=== PATIENT | male | born 1985 | race Caucasian/White ===

== ENCOUNTER 2019-02-09 09:50 | Emergency (ER) | payer BC ==
--- NOTE | 2019-02-09 10:11 | UC ---
Lower Extremity/Ankle HPI - HPI Summary HPI Summary: patient woke up this morning with sore left foot and pain around the lateral side of ankle. denies any injury. has been physical over the past few days. states yesterday has shooting paind from the bottom of the foot up around the lateral ankle - History of Current Complaint Stated Complaint: LEFT ANKLE/FOOT COMPLAINT Time Seen by Provider: 02/09/19 10:05 Hx Obtained From: Patient Onset/Duration: Sudden Onset, Lasting Days Severity Initially: Mild Severity Currently: Moderate Aggravating Factor(s): Standing, Ambulation Alleviating Factor(s): Nothing Able to Bear Weight: Yes - Allergies/Home Medications Allergies/Adverse Reactions: Allergies Allergy/AdvReac Type Severity Reaction Status Date / Time Penicillins Allergy Unknown Verified 02/09/19 10:03 Reaction Details Home Medications: Home Medications Ibuprofen TAB* [Motrin TAB* 800 MG] 800 mg PO Q4H 02/09/19 [History Confirmed ] PMH/Surg Hx/FS Hx/Imm Hx Previously Healthy: Yes - Surgical History Surgical History: None - Family History Known Family History: Positive: Hypertension - Social History Alcohol Use: Occasionally Substance Use Type: None Smoking Status (MU): Smoker, Current Status Unknown Amount Used/How Often: Occasionaly Have You Smoked in the Last Year: Yes Review of Systems All Other Systems Reviewed And Are Negative: Yes Musculoskeletal: Positive: Arthralgia, Decreased ROM, Myalgia Is Patient Immunocompromised?: No Physical Exam Triage Information Reviewed: Yes Appearance: Well-Appearing, Pain Distress, Obese Vital Signs Reviewed: Yes Eye Exam: Normal ENT Exam: Normal Dental Exam: Normal Neck exam: Normal Respiratory Exam: Normal Cardiovascular Exam: Normal Abdominal Exam: Normal Bowel Sounds: Positive: Present Musculoskeletal: Positive: Strength Intact, No Edema, ROM Limited @ - in ankle and toes due to pain wih inv and Resitive evr, dorsi flexion, Neurological Exam: Normal Psychological Exam: Normal Skin Exam: Normal Lower Extremity Course/Dx - Course Course Of Treatment: hx obtained, exam performed ,meds reviewed, xray obtained. - Differential Dx/Diagnosis Differential Diagnosis/HQI/PQRI: Contusion, Dislocation, Fracture (Closed), Sprain, Strain Provider Diagnosis: Peroneal tendonitis of left lower leg Discharge ED - Sign-Out/Discharge Documenting (check all that apply): Patient Departure All imaging exams completed and their final reports reviewed: Yes - Discharge Plan Condition: Stable Disposition: HOME Patient Education Materials: Tendinitis (ED) Forms: *Gen. Provider Communication, *Work Release Referrals: No Primary Care Phys,NOPCP [Primary Care Provider] - Additional Instructions: 1. rest, 2. anti inflammatory meds, ibuprofen or aleve as needed. 3. warm water soaks, 4. wear supportive foot wear - Billing Disposition and Condition Condition: STABLE Disposition: Home - Attestation Statements Provider Attestation: I was available for consult. This patient was seen by the [facility]. The patient was not presented to , seen by or examined by me Diane Jaquez MD
[2019-02-09 10:18] VITALS: BP 165/88
== END 2019-02-09 10:45 | disposition home or self-care (01) ==
LOC: UCCORT 09:50
DX: M76.72 Peroneal tendinitis, left leg (principal); F17.200 Nicotine dependence, unspecified, uncomplicated; Z88.0 Allergy status to penicillin
CPT/HCPCS: 99201; G0463

== ENCOUNTER 2019-02-10 22:35 | Emergency (ER) | payer BC ==
--- NOTE | 2019-02-11 00:26 | ED ---
Lower Extremity - HPI Summary HPI Summary: Pt is a 34 y/o M presenting to the ED with a chief complaint of LLE pain suddenly onset a couple of days ago. He states he went to where they dxed him with tendonitis. He reports pain in the top of his L foot and in his L ankle that has worsened tonight and is worse with weight bearing. He is on his feet most of the day at work. He denies fever, chills, nausea, and vomiting. He has been taking approximately 800mg IBU q4-6hrs LITHOP[employer] w/o significant relief. - History of Current Complaint Chief Complaint: EDExtremityLower Stated Complaint: LT FOOT PAIN PER PT Time Seen by Provider: 02/10/19 23:58 Hx Obtained From: Patient Mechanism Of Injury: Unknown Onset of Pain: Days Onset/Duration: Days Severity Initially: Moderate Severity Currently: Severe Pain Intensity: 10 Pain Scale Used: 0-10 Numeric Timing: Constant, Lasting Days Location: Is Discrete @ - LLE Aggravating Factor(s): Weight Bearing Alleviating Factor(s): Nothing Able to Bear Weight: Yes - with pain - Allergies/Home Medications Allergies/Adverse Reactions: Allergies Allergy/AdvReac Type Severity Reaction Status Date / Time Penicillins Allergy Unknown Verified 02/10/19 22:40 Reaction Details PMH/Surg Hx/FS Hx/Imm Hx Previously Healthy: Yes Endocrine/Hematology History: Denies: Hx Diabetes Cardiovascular History: Reports: Hx Hypertension - no meds Infectious Disease History: No Infectious Disease History: Denies: Hx Clostridium Difficile, Hx Hepatitis, Hx Human Immunodeficiency Virus (HIV), Hx Shingles, Hx Tuberculosis, Traveled Outside the [place] in Last 30 Days - Family History Known Family History: Positive: Hypertension - Social History Alcohol Use: Occasionally Hx Substance Use: No Substance Use Type: Reports: None Hx Tobacco Use: Yes Smoking Status (MU): Smoker, Current Status Unknown Amount Used/How Often: Occasionaly Have You Smoked in the Last Year: Yes Review of Systems Negative: Fever, Chills Negative: Vomiting, Nausea Positive: Myalgia All Other Systems Reviewed And Are Negative: Yes Physical Exam - Summary Physical Exam Summary: Constitutional: Well-developed, Well-nourished, Alert. (-) Distressed Skin: Warm, Dry HENT: Normocephalic; Atraumatic Eyes: Conjunctiva normal Neck: Musculoskeletal ROM normal neck. (-) JVD, (-) Stridor, (-) Tracheal deviation Cardio: Rhythm regular, rate normal, Heart sounds normal; Intact distal pulses; Radial pulses are 2+ and symmetric. (-) Murmur Pulmonary/Chest wall: Effort normal. (-) Respiratory distress, (-) Wheezes, (-) Rales Abd: Soft, (-) tenderness, (-) Distension, (-) Guarding, (-) Rebound Musculoskeletal: Tenderness in the L plantar fascia. No ankle tenderness, no edema, full ROM in all joints. DP/PT pulse 2+. Lymph: (-) Cervical adenopathy Neuro: Alert, Oriented x3 Psych: Mood and affect Normal Triage Information Reviewed: Yes Vital Signs On Initial Exam: Initial Vitals Temp Pulse Resp BP Pulse Ox 98.6 F 91 16 165/105 97 02/10/19 22:37 02/10/19 22:37 02/10/19 22:37 02/10/19 22:37 02/10/19 22:37 Vital Signs Reviewed: Yes Procedures - Sedation Patient Received Moderate/Deep Sedation with Procedure: No Diagnostics - Vital Signs Vital Signs Temp Pulse Resp BP Pulse Ox 02/10/19 22:37 98.6 F 91 16 165/105 97 - Laboratory Lab Statement: Any lab studies that have been ordered have been reviewed, and results considered in the medical decision making process. Lower Extremity Course/Dx - Course Course Of Treatment: Patient is here with pain in his plantar fascia. Patient' s symptoms are consistent with plantar fasciitis. Patient evidence of septic arthritis and had no trauma resuscitating x-ray. Patient was given podiatry follow-up. Patient had an Sven wrap placed and was given crutches. - Diagnoses Provider Diagnoses: Plantar fasciitis of left foot Discharge ED - Sign-Out/Discharge Documenting (check all that apply): Patient Departure - Discharge Plan Condition: Stable Disposition: HOME Prescriptions: Dexamethasone TAB* [Decadron TAB*] 12 mg PO ONCE #3 tab Patient Education Materials: Plantar Fasciitis (ED) Referrals: Katelin Song MD [Medical Doctor] - Daniel Thomas DPM [Doctor of Podiatric Medicine] - Additional Instructions: Please take no more than 800mg Ibuprofen every 8 hours. Take your prescribed medications as instructed. Follow up with Dr. Song of orthopedics or Dr. Saxena of podiatry. Come back to the emergency department with any sudden numbness, one-sided weakness, or tingling. - Billing Disposition and Condition Condition: STABLE Disposition: Home - Attestation Statements Document Initiated by Eze: Yes Documenting Scribe: Payal Phan Provider For Whom Eze is Documenting (Include Credential): Frantz Javed MD. Scribe Attestation: Payal Medina, scribed for Frantz Javed MD. on 02/11/19 at 0356. Scribe Documentation Reviewed: Yes Provider Attestation: The documentation as recorded by the maaiibe, Payal Phan accurately reflects the service I personally performed and the decisions made by , Frantz Javed MD. Status of Scribe Document: Viewed
[2019-02-11 01:17] VITALS: BP 139/81
== END 2019-02-11 01:16 | disposition home or self-care (01) ==
LOC: ED 22:35
DX: M72.2 Plantar fascial fibromatosis (principal); I10 Essential (primary) hypertension; F17.200 Nicotine dependence, unspecified, uncomplicated; Z88.0 Allergy status to penicillin
CPT/HCPCS: 99282

== ENCOUNTER 2019-06-19 07:58 | Emergency (ER) | payer BC ==
[2019-06-19 08:22] VITALS: BP 148/89
[2019-06-19 08:45] LABS: Influenza A Molecular Negative (Negative); Influenza B Molecular Negative (Negative)
--- NOTE | 2019-06-19 09:23 | UC ---
UC General HPI - HPI Summary HPI Summary: Here with his . Started to feel bodyaches last night night and vomited once last night. No diarrhea. No fever. No cough or congestion. Diffuse abdominal pain. Has not taken any meds. No longer feels nauseated. Just c/o body aches. No rash. No diarrhea. Normal BM. Unsure of last BM states he doesn't keep track. Meds; reviewed - History of Current Complaint Chief Complaint: UCGeneralIllness Stated Complaint: FLU LIKE SYMPTOMS Time Seen by Provider: 06/19/19 08:28 Pain Intensity: 3 - Allergy/Home Medications Allergies/Adverse Reactions: Allergies Allergy/AdvReac Type Severity Reaction Status Date / Time Penicillins Allergy Unknown Verified 06/19/19 08:22 Reaction Details Home Medications: Home Medications NK [No Home Medications Reported] 06/19/19 [History Confirmed 06/19/19] PMH/Surg Hx/FS Hx/Imm Hx Previously Healthy: Yes - Surgical History Surgical History: None - Family History Known Family History: Positive: Hypertension - Social History Alcohol Use: None Substance Use Type: None Smoking Status (MU): Current Some Day Smoker Amount Used/How Often: Occasionaly Have You Smoked in the Last Year: Yes Household Exposure Type: Cigarettes Review of Systems All Other Systems Reviewed And Are Negative: Yes Gastrointestinal: Positive: Vomiting, Nausea Physical Exam Triage Information Reviewed: Yes Appearance: Well-Appearing Vital Signs: Initial Vital Signs Temp 99.6 F 06/19/19 08:17 Pulse 99 06/19/19 08:17 Resp 18 06/19/19 08:17 BP 148/89 06/19/19 08:17 Pulse Ox 96 06/19/19 08:17 Vital Signs Reviewed: Yes ENT: Positive: Normal ENT inspection Neck: Positive: Supple Respiratory: Positive: Lungs clear, Normal breath sounds Cardiovascular: Positive: RRR, No Murmur Abdomen Description: Positive: Soft, Other: - mild discomfort on deep palpation in LLQ. Bowel Sounds: Positive: Present Course/Dx - Course Course Of Treatment: Patient here with bodyaches and generalized malaise Flu: negative Nontoxic appearing Afebrile Could be early diverticulitis, but afebrile with main complaint is body aches. Would hold off on antibiotics at this point. Viral syndrome Plan Recommend rest, fluids and tylenol and/or ibuprofen as needed for pain/fever - take as directed If symptoms persist or worsen, including high fever and worsening abdominal pain , recommend follow up with PCP or return to urgent care - Diagnoses Provider Diagnosis: Viral syndrome Discharge ED - Sign-Out/Discharge Documenting (check all that apply): Patient Departure All imaging exams completed and their final reports reviewed: No Studies - Discharge Plan Condition: Good Disposition: HOME Patient Education Materials: Viral Syndrome (ED) Forms: *Work Release Referrals: No Primary Care Phys,NOPCP [Primary Care Provider] - Additional Instructions: Recommend rest, fluids and tylenol and/or ibuprofen as needed for pain/fever - take as directed If symptoms persist or worsen, including high fever and worsening abdominal pain , recommend follow up with PCP or return to urgent care - Billing Disposition and Condition Condition: GOOD Disposition: Home
== END 2019-06-19 09:23 | disposition home or self-care (01) ==
LOC: UCCORT 07:58
DX: B34.9 Viral infection, unspecified (principal); Z88.0 Allergy status to penicillin; F17.200 Nicotine dependence, unspecified, uncomplicated
CPT/HCPCS: 99212; G0463